=== PATIENT | female | born 1955 | race Caucasian/White ===

== ENCOUNTER 2016-12-09 18:11 | Emergency (ER) | payer SELFPAY ==
[~2016-12-09] VITALS: Wt 122.5 kg
[~2016-12-09 18:11] MED LIST: ANAPROX DS550 MG PO; CIPROFLOXACIN500 MG PO; HYDROCODONE BIT1 T11 PO; LISINOPRIL5 MG PO; NKHM; PERCOCET 325 MG1 TA2 PO; PREDNISONE10 M1 PO; PREDNISONE50 MG PO; ROBAXIN750 MG PO; VICODIN 500 MG-1 TAB PO
[2016-12-09 18:36] LABS: BILIRUBIN NEGATIVE (NEGATIVE); BLOOD 1+ (NEGATIVE); CLARITY SL CLOUDY (CLEAR); COLOR YELLOW (YELLOW); GLUCOSE NEGATIVE (NEGATIVE); KETONE 2+ (NEGATIVE); LEUKO ESTERASE 1+ (NEGATIVE); NITRITE NEGATIVE (NEGATIVE); PH 6.5 (5.0-9.0); PROTEIN NEGATIVE (NEGATIVE); SPECIFIC GRAVITY 1.015 (1.005-1.030); UROBILINOGEN 0.2 E.U./dl (0.2-1.0)
[2016-12-09 18:42] LABS: RBC 0-2 rbc/hpf (0-2)
[2016-12-09 18:43] LABS: BACTERIA 3+; URINE REFLEX COMMENT YES (NO)
[2016-12-09] MEDS ORDERED: PYRIDIUM100 MG PO (21:15)
[2016-12-09] MEDS ORDERED: CIPRO500 MG PO (21:15)
== END 2016-12-09 20:29 | disposition home or self-care (01) ==
LOC: ED 18:11
PROVIDERS: Nurse Practitioner Family
DX: N30.01 Acute cystitis with hematuria (principal); Z98.51 Tubal ligation status; Z90.89 Acquired absence of other organs; Z88.1 Allergy status to other antibiotic agents; Z88.0 Allergy status to penicillin

== ENCOUNTER 2016-12-11 16:26 | Emergency (ER) | payer SELFPAY ==
[~2016-12-11] VITALS: Ht 157.4 cm; Wt 122.5 kg
[~2016-12-11 16:26] MED LIST changes: +CIPRO500 MG PO; +PYRIDIUM100 MG PO
[2016-12-11 17:12] LABS: BILIRUBIN 1+ (NEGATIVE); BLOOD TRACE-INTACT (NEGATIVE); CLARITY SL CLOUDY (CLEAR); COLOR ORANGE (YELLOW); GLUCOSE TRACE (NEGATIVE); KETONE TRACE (NEGATIVE); NITRITE POSITIVE (NEGATIVE); PH 6.5 (5.0-9.0); PROTEIN 2+ (NEGATIVE); SPECIFIC GRAVITY 1.015 (1.005-1.030)
[2016-12-11 17:20] LABS: LEUKO ESTERASE TRACE (NEGATIVE)
[2016-12-11 17:22] LABS: EPITHELIAL CELLS 15-20; URINE REFLEX COMMENT YES (NO)
[2016-12-11 17:30] LABS: BASO # 0.1 10*3/uL (0.0-0.1); BASO % 0.7 % (0.0-1.0); EOS # 0.1 10*3/uL (0.0-0.4); EOS % 1.3 % (1.0-4.0); HEMATOCRIT 30.9 % (37.0-47.0); HEMOGLOBIN 10.4 g/dl (12.0-16.0); LYMPH # 0.8 10*3/uL (1.3-4.4); LYMPH % 11.7 % (27.0-41.0); MEAN CELL VOLUME 87.5 fl (81.0-99.0); MEAN CORPUSCULAR HGB 29.5 pg (27.0-31.0); MEAN CORPUSCULAR HGB CONC 33.7 g/dl (33.0-37.0); MEAN PLATELET VOLUME 9.6 fl (9.6-12.3); MONO # 0.4 10*3/uL (0.1-1.0); MONO % 6.1 % (3.0-9.0); NEUT # 5.7 10*3/uL (2.3-7.9); NEUT % 79.6 % (47.0-73.0); PLATELET COUNT AUTOMATED 309 10*3/uL (130-400); RED BLOOD COUNT 3.53 10*6/uL (4.10-5.10); RED CELL DISTRI WIDTH 12.4 % (0-14.5); WHITE BLOOD COUNT 7.1 10*3/uL (4.8-10.8)
[2016-12-11 17:38] LABS: PROTHROMBIN TIME 10.6 SECONDS (9.0-12.4)
[2016-12-11 17:48] LABS: ALBUMIN 3.4 gm/dl (3.1-4.5); ALKALINE PHOSPHATASE 44 U/L (45-117); BILIRUBIN, TOTAL 0.4 mg/dl (0.2-1.0); BUN 12 mg/dl (7-24); CARBON DIOXIDE 27 mmol/L (21-32); CHLORIDE 106 mmol/L (98-107); EST GLOM FILT AFRICAN AMERICAN > 60 ml/min; GLUCOSE 95 mg/dL (65-99); POTASSIUM 4.1 mmol/L (3.5-5.1); SGOT/AST 16 IU/L (3-35); SGPT/ALT 20 U/L (12-78); SODIUM 142 mmol/L (136-145); TOTAL PROTEIN 6.9 gm/dL (6.4-8.2)
[2016-12-11 17:51] LABS: TROPONIN I < 0.015 ng/ml (<0.5)
[2016-12-11] MEDS ORDERED: CYCLOBENZAPRINE10 MG PO (18:48)
[2016-12-11] MEDS ORDERED: IBU800 MG PO (18:48)
== END 2016-12-11 18:57 | disposition home or self-care (01) ==
LOC: ED 16:26
PROVIDERS: Emergency Medicine; Student in an Organized Health Care Education/Training Program
DX: N39.0 Urinary tract infection, site not specified (principal); R25.2 Cramp and spasm; Z79.899 Other long term (current) drug therapy; Z88.0 Allergy status to penicillin; Z88.1 Allergy status to other antibiotic agents

== ENCOUNTER → 2019-04-27 | Outpatient (CLI) | payer MEDICARE ==
[~2019-04-27] MED LIST changes: +CYCLOBENZAPRINE10 MG PO; +IBU800 MG PO
[2019-04-27 17:49] LABS: BACTERIA 2+; EPITHELIAL CELLS TNTC; MUCOUS TRACE; RBC 0-2 rbc/hpf (0-2)
[2019-04-27 18:03] LABS: HEMATOCRIT 34.5 % (37.0-47.0); HEMOGLOBIN 11.8 g/dl (12.0-16.0); MEAN CELL VOLUME 89.6 fl (81.0-99.0); MEAN CORPUSCULAR HGB 30.6 pg (27.0-31.0); MEAN CORPUSCULAR HGB CONC 34.2 g/dl (33.0-37.0); MEAN PLATELET VOLUME 9.8 fl (9.6-12.3); RED BLOOD COUNT 3.85 10*6/uL (4.10-5.10); RED CELL DISTRI WIDTH 12.6 % (0-14.5); WHITE BLOOD COUNT 8.7 10*3/uL (4.8-10.8)
[2019-04-27 18:08] LABS: ALBUMIN 3.8 gm/dl (3.1-4.5); ALKALINE PHOSPHATASE 62 U/L (45-117); BUN 23 mg/dl (7-24); CHLORIDE 106 mmol/L (98-107); CHOLESTEROL 144 mg/dL (<200); CREATININE 0.71 mg/dL (0.55-1.02); HDL CHOLESTEROL 61 mg/dl (40-60); LDL CHOLESTEROL 57 mg/dL (9-159); POTASSIUM 4.1 mmol/L (3.5-5.1); SGOT/AST 14 IU/L (3-35); SGPT/ALT 22 U/L (12-78); SODIUM 141 mmol/L (136-145); TOTAL PROTEIN 7.7 gm/dL (6.4-8.2); TRIGLYCERIDES 129 mg/dl (<150); VLDL CHOLESTEROL 26 mg/dL (6-40)
[2019-04-27 18:38] LABS: VITAMIN D, 25-HYDROXY 26.2 ng/mL (30-100)
== END | disposition home or self-care (01) ==
LOC: LAB 17:12
PROVIDERS: Physician Assistant
DX: E55.9 Vitamin D deficiency, unspecified (principal); D86.9 Sarcoidosis, unspecified; R23.8 Other skin changes; M25.569 Pain in unspecified knee; R79.89 Other specified abnormal findings of blood chemistry

== ENCOUNTER 2019-09-12 18:39 | Emergency (ER) | payer OTHER, MEDICARE ==
[~2019-09-12] VITALS: Ht 157.4 cm; Wt 117.9 kg
== END 2019-09-12 20:55 | disposition home or self-care (01) ==
LOC: ED 18:39
DX: S70.12XA Contusion of left thigh, initial encounter (principal); S00.83XA Contusion of other part of head, initial encounter; Z88.1 Allergy status to other antibiotic agents; Z88.0 Allergy status to penicillin; Z79.2 Long term (current) use of antibiotics; Z79.899 Other long term (current) drug therapy; V89.2XXA Person injured in unspecified motor-vehicle accident, traffic, initial encounter; Y93.I9 Activity, other involving external motion; Y92.488 Other paved roadways as the place of occurrence of the external cause; Y99.8 Other external cause status

== ENCOUNTER → 2019-09-25 | Outpatient (CLI) | payer OTHER, MEDICARE | END | disposition home or self-care (01) | LOC: US 11:30 | DX: T14.8XXA Other injury of unspecified body region, initial encounter (principal); M79.605 Pain in left leg; X58.XXXA Exposure to other specified factors, initial encounter; Y93.89 Activity, other specified; Y92.89 Other specified places as the place of occurrence of the external cause; Y99.8 Other external cause status ==

== ENCOUNTER → 2020-07-17 | Outpatient (CLI) | payer MEDICARE | END | disposition home or self-care (01) | LOC: MAMMO 06-17 14:00 | PROVIDERS: ATTEND Physician Assistant | DX: N64.4 Mastodynia (principal); N60.19 Diffuse cystic mastopathy of unspecified breast; Z98.890 Other specified postprocedural states ==

== ENCOUNTER 2021-01-21 14:41 | Emergency (ER) | payer MEDICARE ==
[~2021-01-21] VITALS: Ht 162.5 cm; Wt 124.3 kg
[2021-01-21 15:42] LABS: BASO # 0.1 10*3/uL (0.0-0.1); BASO % 0.8 % (0.0-1.0); EOS # 0.1 10*3/uL (0.0-0.4); EOS % 1.4 % (1.0-4.0); HEMATOCRIT 34.2 % (37.0-47.0); LYMPH # 1.7 10*3/uL (1.3-4.4); MEAN CELL VOLUME 90.5 fl (81.0-99.0); MEAN CORPUSCULAR HGB 30.4 pg (27.0-31.0); MEAN CORPUSCULAR HGB CONC 33.6 g/dl (33.0-37.0); MEAN PLATELET VOLUME 9.2 fl (9.6-12.3); MONO # 0.5 10*3/uL (0.1-1.0); MONO % 6.8 % (3.0-9.0); NEUT # 4.9 10*3/uL (2.3-7.9); PLATELET COUNT AUTOMATED 337 10*3/uL (130-400); RED BLOOD COUNT 3.78 10*6/uL (4.10-5.10); RED CELL DISTRI WIDTH 12.5 % (0-14.5); WHITE BLOOD COUNT 7.2 10*3/uL (4.8-10.8)
[2021-01-21 16:00] LABS: ALKALINE PHOSPHATASE 68 U/L (45-117); BUN 25 mg/dl (7-24); CHLORIDE 106 mmol/L (98-107); CREATININE 0.88 mg/dL (0.55-1.02); POTASSIUM 3.9 mmol/L (3.5-5.1); SGOT/AST 20 IU/L (3-35); SGPT/ALT 24 U/L (12-78); SODIUM 140 mmol/L (136-145); TOTAL PROTEIN 7.6 gm/dL (6.4-8.2)
[2021-01-21] MEDS ORDERED: HYDROCODONE-AC1 EAC1 PO (17:03)
[2021-01-21] MEDS ORDERED: CLINDAMYCIN HC300 MG PO ×3 (17:03→17:19)
[2021-03-04] MEDS ORDERED: MELOXICAM15 MG PO (10:12)
[2021-03-09] MEDS ORDERED: PERCOCET 5-3251 EACH PO (08:38)
== END 2021-01-21 17:23 | disposition home or self-care (01) ==
LOC: ED 14:41
PROVIDERS: Emergency Medicine
DX: L03.116 Cellulitis of left lower limb (principal); L03.115 Cellulitis of right lower limb; R60.0 Localized edema; M19.90 Unspecified osteoarthritis, unspecified site; Z88.8 Allergy status to other drugs, medicaments and biological substances; Z88.0 Allergy status to penicillin; Z79.899 Other long term (current) drug therapy; Z98.890 Other specified postprocedural states

== ENCOUNTER → 2021-02-06 | Outpatient (CLI) | payer MEDICARE ==
[~2021-02-06] MED LIST changes: +CLINDAMYCIN HC300 MG PO; +HYDROCODONE-AC1 EAC1 PO; +MELOXICAM15 MG PO; +PERCOCET 5-3251 EACH PO
== END | disposition home or self-care (01) ==
LOC: ORTHO 00:15
PROVIDERS: ATTEND Orthopaedic Surgery
DX: M25.562 Pain in left knee (principal)

== ENCOUNTER → 2021-03-06 | Outpatient (CLI) | payer MEDICARE | END | disposition home or self-care (01) | LOC: COVID19 15:15 | PROVIDERS: ATTEND Surgery | DX: Z01.818 Encounter for other preprocedural examination (principal); Z20.822 Contact with and (suspected) exposure to COVID-19 ==

== ENCOUNTER → 2021-03-09 | Day surgery (SDC) | payer MEDICARE ==
[~2021-03-09] VITALS: Ht 154.9 cm; Wt 117.9 kg
[2021-03-09 07:56] VITALS: BP 114/63
[2021-03-09 08:31] VITALS: BP 131/63
[2021-03-09 08:46] VITALS: BP 105/53
[2021-03-09 09:01] VITALS: BP 126/60
== END | disposition home or self-care (01) ==
LOC: SDC 03-05 09:30
PROVIDERS: ATTEND Surgery
DX: D17.24 Benign lipomatous neoplasm of skin and subcutaneous tissue of left leg (principal); M19.90 Unspecified osteoarthritis, unspecified site

== ENCOUNTER 2021-03-20 16:58 | Emergency (ER) | payer MEDICARE ==
[~2021-03-20] VITALS: Ht 157.4 cm; Wt 120.2 kg
[2021-03-20 18:47] LABS: BASO # 0.1 10*3/uL (0.0-0.1); BASO % 0.6 % (0.0-1.0); EOS # 0.1 10*3/uL (0.0-0.4); HEMATOCRIT 35.2 % (37.0-47.0); LYMPH # 1.5 10*3/uL (1.3-4.4); LYMPH % 15.4 % (27.0-41.0); MEAN CELL VOLUME 91.4 fl (81.0-99.0); MEAN CORPUSCULAR HGB 29.9 pg (27.0-31.0); MEAN CORPUSCULAR HGB CONC 32.7 g/dl (33.0-37.0); MEAN PLATELET VOLUME 9.5 fl (9.6-12.3); MONO # 0.6 10*3/uL (0.1-1.0); NEUT # 7.6 10*3/uL (2.3-7.9); NEUT % 76.7 % (47.0-73.0); PLATELET COUNT AUTOMATED 333 10*3/uL (130-400); RED BLOOD COUNT 3.85 10*6/uL (4.10-5.10); RED CELL DISTRI WIDTH 12.6 % (0-14.5); WHITE BLOOD COUNT 9.9 10*3/uL (4.8-10.8)
[2021-03-20 19:03] LABS: ALBUMIN 4.3 gm/dl (3.1-4.5); ALKALINE PHOSPHATASE 77 U/L (45-117); BUN 24 mg/dl (7-24); CHLORIDE 108 mmol/L (98-107); CREATININE 0.84 mg/dL (0.55-1.02); POTASSIUM 3.9 mmol/L (3.5-5.1); SGOT/AST 23 IU/L (3-35); SGPT/ALT 32 U/L (12-78); SODIUM 143 mmol/L (136-145); TOTAL PROTEIN 8.2 gm/dL (6.4-8.2)
[2021-03-20] MEDS ORDERED: CEPHALEXIN500 M1 PO ×2 (23:28)
[2021-03-20] MEDS ORDERED: SEPTDS PO ×2 (23:28)
== END 2021-03-20 23:54 | disposition home or self-care (01) ==
LOC: ED 16:58
PROVIDERS: Physician Assistant
DX: L03.116 Cellulitis of left lower limb (principal); Z98.51 Tubal ligation status; Z90.89 Acquired absence of other organs; Z79.899 Other long term (current) drug therapy; Z88.1 Allergy status to other antibiotic agents; Z88.0 Allergy status to penicillin

== ENCOUNTER 2021-03-22 18:19 | Inpatient (IN) | payer MEDICARE ==
[~2021-03-22] VITALS: Ht 154.9 cm; Wt 125.7 kg
[~2021-03-22 18:19] MED LIST changes: +CEPHALEXIN500 M1 PO; +SEPTDS PO
[2021-03-22 18:27] VITALS: BP 152/71
[2021-03-22 19:10] LABS: BASO % 0.3 % (0.0-1.0); EOS % 0.4 % (1.0-4.0); HEMATOCRIT 31.2 % (37.0-47.0); LYMPH # 0.8 10*3/uL (1.3-4.4); LYMPH % 8.9 % (27.0-41.0); MEAN CELL VOLUME 90.7 fl (81.0-99.0); MEAN CORPUSCULAR HGB 29.9 pg (27.0-31.0); MEAN PLATELET VOLUME 9.4 fl (9.6-12.3); MONO # 0.6 10*3/uL (0.1-1.0); MONO % 6.5 % (3.0-9.0); NEUT # 7.7 10*3/uL (2.3-7.9); NEUT % 83.7 % (47.0-73.0); PLATELET COUNT AUTOMATED 248 10*3/uL (130-400); RED BLOOD COUNT 3.44 10*6/uL (4.10-5.10); RED CELL DISTRI WIDTH 12.9 % (0-14.5); WHITE BLOOD COUNT 9.2 10*3/uL (4.8-10.8)
[2021-03-22 19:30] LABS: ALBUMIN 3.4 gm/dl (3.1-4.5); CREATININE 1.25 mg/dL (0.55-1.02); POTASSIUM 3.9 mmol/L (3.5-5.1); TOTAL PROTEIN 7.3 gm/dL (6.4-8.2)
[2021-03-22 20:15] VITALS: BP 119/57
[2021-03-23 06:20] LABS: ALBUMIN 2.9 gm/dl (3.1-4.5); BUN 17 mg/dl (7-24); CHLORIDE 104 mmol/L (98-107); CHOLESTEROL 133 mg/dL (<200); POTASSIUM 4.2 mmol/L (3.5-5.1); SGOT/AST 17 IU/L (3-35); SGPT/ALT 23 U/L (12-78); SODIUM 136 mmol/L (136-145); TOTAL PROTEIN 6.5 gm/dL (6.4-8.2); TRIGLYCERIDES 84 mg/dl (<150)
[2021-03-23 06:22] LABS: ALKALINE PHOSPHATASE 51 U/L (45-117); LDL CHOLESTEROL 57 mg/dL (9-159)
[2021-03-23 07:29] LABS: BASO % 0.5 % (0.0-1.0); EOS # 0.2 10*3/uL (0.0-0.4); EOS % 3.2 % (1.0-4.0); HEMATOCRIT 28.9 % (37.0-47.0); LYMPH % 16.5 % (27.0-41.0); MEAN CELL VOLUME 93.2 fl (81.0-99.0); MEAN CORPUSCULAR HGB CONC 32.2 g/dl (33.0-37.0); MEAN PLATELET VOLUME 9.7 fl (9.6-12.3); MONO # 0.6 10*3/uL (0.1-1.0); MONO % 10.7 % (3.0-9.0); NEUT % 68.9 % (47.0-73.0); PLATELET COUNT AUTOMATED 245 10*3/uL (130-400); WHITE BLOOD COUNT 5.9 10*3/uL (4.8-10.8)
[2021-03-23 10:11] VITALS: BP 110/45
[2021-03-23] MEDS ORDERED: LASIX20 MG PO (19:04)
[2021-03-23] MEDS ORDERED: POTASSIUM CHLO10 ME5 PO (19:05)
[2021-03-23] MEDS ORDERED: AMITRIPTYLINE H10 M1 PO (19:06)
[2021-03-23] MEDS ORDERED: 8HR ARTHRITIS650 M1 PO (19:09)
[2021-03-23] MEDS ORDERED: ACIDOPHILUS1 EACH PO (19:11)
[2021-03-23] MEDS ORDERED: PERCOCET 5-3251 EACH PO (20:55)
[2021-03-23] MEDS ORDERED: SEPTDS PO (20:56)
[2021-03-23] MEDS ORDERED: KEFLEX 500 MG E2 CAP PO (20:57)
[2021-03-24 06:42] LABS: BASO # 0.1 10*3/uL (0.0-0.1); EOS # 0.2 10*3/uL (0.0-0.4); EOS % 4.2 % (1.0-4.0); HEMATOCRIT 29.1 % (37.0-47.0); LYMPH # 1.4 10*3/uL (1.3-4.4); MEAN CORPUSCULAR HGB CONC 32.3 g/dl (33.0-37.0); MEAN PLATELET VOLUME 9.3 fl (9.6-12.3); MONO # 0.6 10*3/uL (0.1-1.0); MONO % 10.6 % (3.0-9.0); NEUT # 3.5 10*3/uL (2.3-7.9); PLATELET COUNT AUTOMATED 258 10*3/uL (130-400); RED BLOOD COUNT 3.13 10*6/uL (4.10-5.10); RED CELL DISTRI WIDTH 12.8 % (0-14.5); WHITE BLOOD COUNT 5.8 10*3/uL (4.8-10.8)
[2021-03-24 06:52] LABS: CHLORIDE 107 mmol/L (98-107); CREATININE 0.89 mg/dL (0.55-1.02); POTASSIUM 4.2 mmol/L (3.5-5.1); SODIUM 138 mmol/L (136-145)
[2021-03-24 06:53] LABS: BUN 18 mg/dl (7-24)
[2021-03-24 08:00] VITALS: BP 134/52
[2021-03-24 12:00] VITALS: BP 122/52
[2021-03-24 16:00] VITALS: BP 128/47
[2021-03-24 20:00] VITALS: BP 135/55
[2021-03-25] VITALS: BP 127/46
[2021-03-25 06:25] LABS: BASO % 0.7 % (0.0-1.0); EOS # 0.2 10*3/uL (0.0-0.4); EOS % 3.8 % (1.0-4.0); HEMATOCRIT 27.7 % (37.0-47.0); LYMPH # 1.3 10*3/uL (1.3-4.4); LYMPH % 21.8 % (27.0-41.0); MEAN CELL VOLUME 92.3 fl (81.0-99.0); MEAN CORPUSCULAR HGB 30.3 pg (27.0-31.0); MEAN CORPUSCULAR HGB CONC 32.9 g/dl (33.0-37.0); MEAN PLATELET VOLUME 9.3 fl (9.6-12.3); MONO # 0.7 10*3/uL (0.1-1.0); MONO % 11.2 % (3.0-9.0); NEUT # 3.6 10*3/uL (2.3-7.9); NEUT % 62.3 % (47.0-73.0); PLATELET COUNT AUTOMATED 254 10*3/uL (130-400); RED CELL DISTRI WIDTH 12.7 % (0-14.5); WHITE BLOOD COUNT 5.8 10*3/uL (4.8-10.8)
[2021-03-25 06:42] LABS: BUN 17 mg/dl (7-24); CHLORIDE 106 mmol/L (98-107); CREATININE 0.93 mg/dL (0.55-1.02); POTASSIUM 4.2 mmol/L (3.5-5.1); SODIUM 139 mmol/L (136-145)
[2021-03-25 08:00] VITALS: BP 120/54
[2021-03-25 12:00] VITALS: BP 127/56
[2021-03-25 15:00] VITALS: BP 150/76
[2021-03-25 20:00] VITALS: BP 129/55
[2021-03-26] VITALS (8 sets, daily range): BP systolic 117–152; BP diastolic 49–84
[2021-03-26 06:47] LABS: BASO # 0.1 10*3/uL (0.0-0.1); BASO % 0.7 % (0.0-1.0); EOS # 0.2 10*3/uL (0.0-0.4); HEMATOCRIT 31.5 % (37.0-47.0); LYMPH # 1.7 10*3/uL (1.3-4.4); LYMPH % 23.9 % (27.0-41.0); MEAN CELL VOLUME 90.5 fl (81.0-99.0); MEAN CORPUSCULAR HGB 29.6 pg (27.0-31.0); MEAN CORPUSCULAR HGB CONC 32.7 g/dl (33.0-37.0); MEAN PLATELET VOLUME 9.1 fl (9.6-12.3); MONO # 0.6 10*3/uL (0.1-1.0); MONO % 8.4 % (3.0-9.0); NEUT # 4.5 10*3/uL (2.3-7.9); NEUT % 63.7 % (47.0-73.0); PLATELET COUNT AUTOMATED 320 10*3/uL (130-400); RED BLOOD COUNT 3.48 10*6/uL (4.10-5.10); RED CELL DISTRI WIDTH 12.3 % (0-14.5)
[2021-03-26 07:06] LABS: BUN 18 mg/dl (7-24); CHLORIDE 103 mmol/L (98-107); POTASSIUM 3.9 mmol/L (3.5-5.1); SODIUM 137 mmol/L (136-145)
[2021-03-27] VITALS: BP 147/70
[2021-03-27 06:23] LABS: HEMATOCRIT 29.6 % (37.0-47.0); MEAN CELL VOLUME 91.1 fl (81.0-99.0); MEAN CORPUSCULAR HGB 29.8 pg (27.0-31.0); MEAN CORPUSCULAR HGB CONC 32.8 g/dl (33.0-37.0); MEAN PLATELET VOLUME 9.1 fl (9.6-12.3); PLATELET COUNT AUTOMATED 310 10*3/uL (130-400); RED BLOOD COUNT 3.25 10*6/uL (4.10-5.10); RED CELL DISTRI WIDTH 12.3 % (0-14.5); WHITE BLOOD COUNT 5.5 10*3/uL (4.8-10.8)
[2021-03-27 06:26] LABS: BUN 17 mg/dl (7-24); CHLORIDE 106 mmol/L (98-107); CREATININE 0.78 mg/dL (0.55-1.02); POTASSIUM 4.2 mmol/L (3.5-5.1); SODIUM 139 mmol/L (136-145)
[2021-03-27 08:00] VITALS: BP 144/61
[2021-03-27 08:46] LABS: BASOPHILS 2 % (0-1); PLATELET SUFFICIENCY NORMAL (NORMAL); TOTAL CELLS COUNTED 100 #CELLS
[2021-03-27] MEDS ORDERED: CEFUROXIME AXE500 MG PO (11:17)
[2021-03-27] MEDS ORDERED: DOXYCYCLINE100 M3 PO (11:17)
== END 2021-03-27 14:51 | disposition home or self-care (01) | DRG 862 ==
LOC: ED 18:19 → EDHOLD 22:15 → 5E 22:15
PROVIDERS: Emergency Medicine; Family Medicine; Internal Medicine; Student in an Organized Health Care Education/Training Program; ADMIT Emergency Medicine; ATTEND Emergency Medicine
PROC: 0Y9D0ZZ Drainage of Left Upper Leg, Open Approach (ICD-10-PCS; principal; 2021-03-26)
DX: T81.49XA Infection following a procedure, other surgical site, initial encounter (principal); E43 Unspecified severe protein-calorie malnutrition; N17.0 Acute kidney failure with tubular necrosis; L03.116 Cellulitis of left lower limb; L02.416 Cutaneous abscess of left lower limb; L03.115 Cellulitis of right lower limb; Z68.43 Body mass index [BMI] 50.0-59.9, adult; M19.90 Unspecified osteoarthritis, unspecified site; D86.9 Sarcoidosis, unspecified; D64.9 Anemia, unspecified; E66.01 Morbid (severe) obesity due to excess calories; Y83.8 Other surgical procedures as the cause of abnormal reaction of the patient, or of later complication, without mention of misadventure at the time of the procedure; R73.9 Hyperglycemia, unspecified; Z88.0 Allergy status to penicillin; Z83.3 Family history of diabetes mellitus; Z82.5 Family history of asthma and other chronic lower respiratory diseases; Z83.2 Family history of diseases of the blood and blood-forming organs and certain disorders involving the immune mechanism; Z82.49 Family history of ischemic heart disease and other diseases of the circulatory system; Z84.1 Family history of disorders of kidney and ureter; Z88.1 Allergy status to other antibiotic agents; Y92.89 Other specified places as the place of occurrence of the external cause

== ENCOUNTER → 2021-03-31 | Outpatient (CLI) | payer MEDICARE ==
[~2021-03-31] MED LIST changes: +8HR ARTHRITIS650 M1 PO; +ACIDOPHILUS1 EACH PO; +AMITRIPTYLINE H10 M1 PO; +CEFUROXIME AXE500 MG PO; +DOXYCYCLINE100 M3 PO; +KEFLEX 500 MG E2 CAP PO; +LASIX20 MG PO; +POTASSIUM CHLO10 ME5 PO
== END ==
LOC: WOUNDCARE 01:01
PROVIDERS: ATTEND Nurse Practitioner
DX: L02.416 Cutaneous abscess of left lower limb (principal); L03.116 Cellulitis of left lower limb; L03.115 Cellulitis of right lower limb; I87.8 Other specified disorders of veins

== ENCOUNTER → 2021-04-06 | Outpatient (CLI) | payer MEDICARE | LOC: WOUNDCARE 08:00 | PROVIDERS: ATTEND Nurse Practitioner | DX: L02.416 Cutaneous abscess of left lower limb (principal); L03.116 Cellulitis of left lower limb; L03.115 Cellulitis of right lower limb; I87.8 Other specified disorders of veins; M19.90 Unspecified osteoarthritis, unspecified site; E66.8 Other obesity; Z68.43 Body mass index [BMI] 50.0-59.9, adult ==

== ENCOUNTER → 2021-04-07 | Outpatient (CLI) | payer MEDICARE | LOC: WOUNDCARE 01:24 | PROVIDERS: ATTEND Nurse Practitioner | DX: L02.416 Cutaneous abscess of left lower limb (principal); L03.116 Cellulitis of left lower limb; L03.115 Cellulitis of right lower limb; I87.8 Other specified disorders of veins ==

== ENCOUNTER → 2021-04-14 | Outpatient (CLI) | payer MEDICARE | LOC: WOUNDCARE 00:57 | PROVIDERS: ATTEND Surgery | DX: L02.416 Cutaneous abscess of left lower limb (principal); L03.116 Cellulitis of left lower limb; L03.115 Cellulitis of right lower limb; I87.8 Other specified disorders of veins ==

== ENCOUNTER → 2021-04-21 | Outpatient (CLI) | payer MEDICARE | LOC: WOUNDCARE 01:05 | PROVIDERS: ATTEND Nurse Practitioner | DX: L02.416 Cutaneous abscess of left lower limb (principal); L03.116 Cellulitis of left lower limb; L03.115 Cellulitis of right lower limb; I87.8 Other specified disorders of veins ==

== ENCOUNTER → 2021-04-28 | Outpatient (CLI) | payer MEDICARE | LOC: WOUNDCARE 01:45 | PROVIDERS: ATTEND Nurse Practitioner | DX: L02.416 Cutaneous abscess of left lower limb (principal); L03.116 Cellulitis of left lower limb; L03.115 Cellulitis of right lower limb; I87.8 Other specified disorders of veins ==

== ENCOUNTER → 2021-05-05 | Outpatient (CLI) | payer MEDICARE | LOC: WOUNDCARE 01:23 | PROVIDERS: ATTEND Surgery | DX: L02.416 Cutaneous abscess of left lower limb (principal); L03.116 Cellulitis of left lower limb; L03.115 Cellulitis of right lower limb; I87.8 Other specified disorders of veins ==

== ENCOUNTER → 2021-05-26 | Outpatient (CLI) | payer MEDICARE | LOC: WOUNDCARE 01:13 | PROVIDERS: ATTEND Surgery | DX: L02.416 Cutaneous abscess of left lower limb (principal); L03.116 Cellulitis of left lower limb; L03.115 Cellulitis of right lower limb; I87.8 Other specified disorders of veins ==

== ENCOUNTER → 2021-05-26 | Outpatient (CLI) | payer MEDICARE | END | disposition home or self-care (01) | LOC: RAD 14:06 | PROVIDERS: ATTEND Surgery | DX: M17.12 Unilateral primary osteoarthritis, left knee (principal); M19.09 Primary osteoarthritis, other specified site; M85.652 Other cyst of bone, left thigh; M25.762 Osteophyte, left knee; M25.862 Other specified joint disorders, left knee ==

== ENCOUNTER → 2021-06-02 | Outpatient (CLI) | payer MEDICARE | LOC: WOUNDCARE 12:57 | PROVIDERS: ATTEND Surgery | DX: L02.416 Cutaneous abscess of left lower limb (principal); L03.116 Cellulitis of left lower limb; L03.115 Cellulitis of right lower limb; I87.8 Other specified disorders of veins ==

== ENCOUNTER → 2021-06-16 | Outpatient (CLI) | payer MEDICARE | LOC: WOUNDCARE 01:30 | PROVIDERS: ATTEND Surgery | DX: L02.416 Cutaneous abscess of left lower limb (principal); L03.116 Cellulitis of left lower limb; L03.115 Cellulitis of right lower limb; I87.8 Other specified disorders of veins ==

== ENCOUNTER → 2021-07-15 | Outpatient (CLI) | payer MEDICARE | END | disposition home or self-care (01) | LOC: US 14:40 | PROVIDERS: ATTEND Nurse Practitioner Primary Care | DX: M79.89 Other specified soft tissue disorders (principal); M79.605 Pain in left leg ==

== ENCOUNTER → 2021-11-11 | Outpatient (CLI) | payer MEDICARE ==
[2021-11-11 16:32] LABS: BASO # 0.1 10*3/uL (0.0-0.1); BASO % 1.1 % (0.0-1.0); EOS # 0.2 10*3/uL (0.0-0.4); EOS % 3.6 % (1.0-4.0); LYMPH # 1.1 10*3/uL (1.3-4.4); LYMPH % 16.4 % (27.0-41.0); MEAN CELL VOLUME 91.2 fl (81.0-99.0); MEAN CORPUSCULAR HGB CONC 32.9 g/dl (33.0-37.0); MEAN PLATELET VOLUME 9.1 fl (9.6-12.3); MONO # 0.5 10*3/uL (0.1-1.0); NEUT # 4.6 10*3/uL (2.3-7.9); NEUT % 70.7 % (47.0-73.0); PLATELET COUNT AUTOMATED 330 10*3/uL (130-400); RED CELL DISTRI WIDTH 12.6 % (0-14.5); WHITE BLOOD COUNT 6.5 10*3/uL (4.8-10.8)
[2021-11-11 16:47] LABS: ALBUMIN 3.2 gm/dl (3.1-4.5); CREATININE 1.22 mg/dL (0.55-1.02); POTASSIUM 4.1 mmol/L (3.5-5.1); TOTAL PROTEIN 7.7 gm/dL (6.4-8.2)
== END | disposition home or self-care (01) ==
LOC: LAB 16:07
PROVIDERS: ATTEND Surgery Vascular Surgery
DX: D64.9 Anemia, unspecified (principal)

== ENCOUNTER → 2022-02-15 | Outpatient (CLI) | payer MEDICARE | END | disposition home or self-care (01) | LOC: MAMMO 08:30 | PROVIDERS: ATTEND Physician Assistant | DX: Z12.31 Encounter for screening mammogram for malignant neoplasm of breast (principal) ==

== ENCOUNTER 2022-02-20 01:59 | Emergency (ER) | payer MEDICARE ==
[~2022-02-20] VITALS: Ht 157.4 cm; Wt 122.5 kg
[2022-02-20] MEDS ORDERED: TRAMADOL HCL50 MG PO (02:09)
[2022-02-20] MEDS ORDERED: NEURONTIN300 MG PO (02:09)
[2022-02-20] MEDS ORDERED: ASPIRIN ADULT L81 M2 PO (02:10)
[2022-02-20 03:07] LABS: BASO # 0.1 10*3/uL (0.0-0.1); EOS # 0.2 10*3/uL (0.0-0.4); EOS % 3.3 % (1.0-4.0); HEMATOCRIT 32.4 % (37.0-47.0); LYMPH # 1.8 10*3/uL (1.3-4.4); LYMPH % 24.6 % (27.0-41.0); MEAN CORPUSCULAR HGB 28.6 pg (27.0-31.0); MEAN CORPUSCULAR HGB CONC 33.6 g/dl (33.0-37.0); MEAN PLATELET VOLUME 9.1 fl (9.6-12.3); MONO # 0.7 10*3/uL (0.1-1.0); MONO % 9.5 % (3.0-9.0); NEUT # 4.4 10*3/uL (2.3-7.9); NEUT % 61.3 % (47.0-73.0); PLATELET COUNT AUTOMATED 285 10*3/uL (130-400); RED BLOOD COUNT 3.81 10*6/uL (4.10-5.10); RED CELL DISTRI WIDTH 12.5 % (0-14.5); WHITE BLOOD COUNT 7.2 10*3/uL (4.8-10.8)
[2022-02-20 03:36] LABS: ALKALINE PHOSPHATASE 70 U/L (45-117); BUN 22 mg/dl (7-24); CHLORIDE 106 mmol/L (98-107); CREATININE 0.87 mg/dL (0.55-1.02); POTASSIUM 3.8 mmol/L (3.5-5.1); SGOT/AST 18 IU/L (3-35); SGPT/ALT 20 U/L (12-78); SODIUM 138 mmol/L (136-145); TOTAL PROTEIN 7.3 gm/dL (6.4-8.2); URIC ACID 4.9 mg/dL (2.6-6.0)
== END 2022-02-20 04:38 | disposition home or self-care (01) ==
LOC: ED 01:59
PROVIDERS: Emergency Medicine
DX: M70.22 Olecranon bursitis, left elbow (principal); M19.90 Unspecified osteoarthritis, unspecified site; E66.01 Morbid (severe) obesity due to excess calories; Z88.0 Allergy status to penicillin; Z88.1 Allergy status to other antibiotic agents; Z79.899 Other long term (current) drug therapy; Z79.82 Long term (current) use of aspirin; Z98.51 Tubal ligation status; Z98.890 Other specified postprocedural states; Z90.89 Acquired absence of other organs

== ENCOUNTER → 2023-05-11 | Outpatient (CLI) | payer MEDICARE ==
[~2023-05-11] MED LIST changes: +ASPIRIN ADULT L81 M2 PO; +NEURONTIN300 MG PO; +TRAMADOL HCL50 MG PO
== END | disposition home or self-care (01) ==
LOC: MAMMO 00:21
PROVIDERS: ATTEND Physician Assistant
DX: Z12.31 Encounter for screening mammogram for malignant neoplasm of breast (principal)